=== PATIENT | female | born 1965 | race Caucasian/White ===

== ENCOUNTER 2022-12-12 09:49 | Outpatient (CLI) | payer BC | END 2022-12-12 09:50 | disposition home or self-care (01) | LOC: SCSRAD 09:49 | PROVIDERS: ATTEND Nurse Practitioner Family | DX: M79.675 Pain in left toe(s) (principal); M20.12 Hallux valgus (acquired), left foot; M20.32 Hallux varus (acquired), left foot; M25.872 Other specified joint disorders, left ankle and foot; Z98.890 Other specified postprocedural states ==